=== PATIENT | female | born 1985 | race American Indian/Alaskan Native ===

== ENCOUNTER 2019-12-08 08:05 | Outpatient (CLI) | payer BC ==
[2019-12-08 08:59] LABS: Blood Urea Nitrogen 11 mg/dL (7-17)
--- NOTE | 2019-12-08 11:38 | Cat Scan Report ---
NECK CT 12/08/2019 HISTORY: J38.2Nodules of vocal cords FINDINGS: Unenhanced and enhanced CT images of the soft tissues of the neck were obtained. Images are evaluated in axial, coronal and sagittal planes. There is no evidence of abnormal neck mass, fluid collection, or inflammation. There is a normal CT appearance to the larynx and vocal cords. A few scattered lymph nodes are present bilaterally. Largest of these are in the jugulodigastric werner ons, with a maximum length of approximately 11 mm. Overall appearance is benign. There is a normal appearance to the parotid and submandibular glands. Thyroid gland is unremarkable. Vascular structures are unremarkable. IMPRESSION: No significant abnormality. All CT scans at this location are performed using dose reduction to ALARA by means of automated expos ure control. Signer Name: Osei Burkett MD Signed: 12/08/2019 11:33 AM Workstation Name: [id number]
== END 2019-12-08 08:06 | disposition home or self-care (01) ==
LOC: CT 08:05
PROVIDERS: ATTEND Otolaryngology
DX: J38.2 Nodules of vocal cords (principal)
CPT/HCPCS: 36415; 70492; 82565; 84520; Q9967